=== PATIENT | female | born 1935 | race Hispanic/Latino ===

== ENCOUNTER 2021-05-25 16:49 | Emergency (ER) | payer OTHER, MEDICARE ==
[~2021-05-25] VITALS: Ht 152.4 cm; Wt 74.4 kg
[2021-05-25 16:51] VITALS: BP 134/82
[2021-05-25] MEDS ORDERED: ACETAMINOPHEN 325 MG TAB PO ONE (17:30)
[2021-05-25] MEDS ORDERED: KETOROLAC 30MG VIAL (30MG/ML) IM ONE (19:00)
[2021-05-25] MEDS ORDERED: NAPR-1196 PO (19:05)
[2021-05-25] MEDS ORDERED: ACETAMINOPHEN 325 MG TAB ONE (19:23)
== END 2021-05-25 19:44 | disposition home or self-care (01) ==
LOC: EDH 16:49
DX: R07.89 Other chest pain (principal); I10 Essential (primary) hypertension; E78.00 Pure hypercholesterolemia, unspecified; E11.9 Type 2 diabetes mellitus without complications; V49.49XA Driver injured in collision with other motor vehicles in traffic accident, initial encounter; Y93.89 Activity, other specified; Y92.89 Other specified places as the place of occurrence of the external cause; Y99.8 Other external cause status
CPT/HCPCS: 71046; 93005; 96372; 99283; J1885